=== PATIENT | male | born 1980 | race Caucasian/White ===

== ENCOUNTER 2022-10-18 11:01 | Outpatient (CLI) | payer BC, SELFPAY ==
--- NOTE | 2022-10-24 12:48 | WPDHOLTEREM ---
Holter/Event Monitor Holter/Event Monitor Date of procedure: 10/18/22 Holter/Event Procedure: 48 Hr Holter Monitor Indications: Palpitations Conclusion: 1. 48 hour holter monitor on 10/18/22. 2. Predominant rhythm is sinus rhythm. HR range 49-138 bpm; average HR 85 bpm. 3. There are 36 premature supraventricular complexes and 60 supraventricular bigeminy. No supraventricular tachycardia. 4. There are 24 premature ventricular complexes, 4 ventricular couplets, and 1 ventricular triplet. There are 2 episodes of ventricular tachycardia, fastest at 140 bpm and longest lasting 6 beats. 5. No sinoatrial or atrioventricular blocks. No significant pauses greater than 2 seconds. 6. Patient reports symptoms of fluttering which demonstrate sinus rhythm, HR range 88-110 bpm and 1 ventricular couplet.
== END 2022-10-18 11:02 | disposition home or self-care (01) ==
LOC: ANHCARD 11:02
PROVIDERS: PCP Physician Assistant; Visit Provider Physician Assistant
DX: R00.2 Palpitations (principal)
CPT/HCPCS: 93225; 93226

== ENCOUNTER 2024-06-21 17:37 | Emergency (ER) | payer BC, SELFPAY ==
--- NOTE | ~2024-06-21 | US_ITS ---
EXAMINATION: US venous doppler [facility] DATE: 06/21/2024 19:59 INDICATION: Swelling TECHNIQUE: Grayscale ultrasound images without and with compression and Doppler ultrasound images of the left lower extremity veins were obtained. COMPARISON: None. FINDINGS: The visualized portions of left common femoral vein, profunda (deep) femoral vein, femoral vein, popl iteal vein, peroneal veins, posterior tibial veins, and greater saphenous vein outflow are patent. IMPRESSION: 1. No deep venous thrombosis within the left lower extremity. Reviewed, dictated and finalized at location A. ORATE RESPONSIBILITY OFFICER
[2024-06-21 17:57] VITALS: BP 195/100; PULSE 109; RESP 18; TEMP 36.3; O2SAT 100
--- NOTE | 2024-06-21 20:16 | ED_ITS ---
HPI - Extremity Problem General Chief complaint: Extremity Problem,Nontraumatic Stated complaint: left foot pain/swelling Time Seen by Provider: 06/21/24 19:29 History of Present Illness HPI Narrative: Patient is a 43-year-old male who presents to the emergency department this evening complaining of left lower extremity pain and swelling for the past year. Patient states that he has not seen his doctor in about a year and states that the pain has been mild and intermittent so he decided to wait it out to see if it would go away. Denies any history of heart failure or blood clots/blood clotting disorder. Patient states yesterday he went sliding and noticed today that his left lower leg was more painful so he decided to come and get checked out. Patient wants to rule out a DVT. States that the pain is only present when he stretches his left leg, has been ambulating and has no difficulty putting weight on his left lower extremity. No additional symptoms or concerns at this time. Related Data Home Medications ?Medication ?Instructions ?Recorded ?Confirmed ?Last Taken ?Type multivitamin (Daily Multi-Vitamin 1 tablet PO DAILY 10/04/22 02/13/23 Unknown History tablet) Allergies Allergy/AdvReac Type Severity Reaction Status Date / Time sulfamethoxazole (From Allergy Hives Verified 06/21/24 18:00 Sept) trimethoprim (From ) Allergy Hives Verified 06/21/24 18:00 Review of Systems Review of Systems: All systems are reviewed and are negative unless stated otherwise in the HPI. [facility] Past Medical History Medical History Hypertension Allergies Surgical History Surgical History Benign skin mole removed 1992 Family History Family History Father Hypertension Grandparent Heart disease Cerebrovascular accident Social History Social History Smoking status: Never smoker Alcohol intake: current Substance use: unknown Lack of Transportation: No Lack of Food: Never True Current Housing: I Have Housing Concerned About Future Housing: No Difficulty Paying Gas/Electric Bills: No Difficulty Paying for Meds: No Currently Unemployed: No Education: Bachelor's Degree Difficulty w/ Childcare or Family Care: No Exam Narrative: General: Alert, awake, afebrile, in no acute distress. HEENT: PERRL, no rhinorrhea, no post nasal drip, oropharynx clear. Neck: Trachea midline, no JVD, no lymphadenopathy. Cardiovascular: Regular rate and rhythm, no murmurs, rubs or gallops, no peripheral edema. Respiratory: Clear to auscultation bilaterally, no tachypnea, no wheezing, no rhonchi, no rubs, no respiratory distress. Abdomen: Soft, nontender, nondistended, no rebound, no guarding, no peritoneal signs. Musculoskeletal: No joint swelling or deformity, normal muscle tone, no left lower extremity calf tenderness, no obvious swelling/edema appreciated on the left lower extremity in comparison to the right. Skin: No rashes or petechia, no signs of infection. Psychiatric: Alert and oriented, normal behavior and judgment for situation. Neurological: Alert and oriented to person, place, and time. Follows all commands. No focal deficits, speech is clear and fluent. Course Vital Signs Vital signs: Vital Signs Temperature 97.4 F L 06/21/24 17:57 Pulse Rate 109 H 06/21/24 17:57 Respiratory Rate 18 06/21/24 17:57 Blood Pressure 195/100 H 06/21/24 17:57 Pulse Oximetry 100 06/21/24 17:57 Oxygen Delivery Room Air 06/21/24 17:57 Temperature 97.4 F L 06/21/24 17:57 Pulse Rate 109 H 06/21/24 17:57 Respiratory Rate 18 06/21/24 17:57 Blood Pressure 195/100 H 06/21/24 17:57 Pulse Oximetry 100 06/21/24 17:57 Oxygen Delivery Room Air 06/21/24 17:57 MDM - Extremity (Nontraumatic) MDM Narrative Medical decision making narrative: The patient was evaluated by myself in the emergency department. History is obtained from patient who is an independent historian and physical exam was performed. External medical records were reviewed at this time. Patient's blood pressure was noted to be elevated at 195/100 patient states that he does have a history of high blood pressure and has not been taking his blood pressure medications. Patient admits that he does take lisinopril/hydrochlorothiazide 20/12.5 mg but he ran out of his medications and he was informed that his script will be refilled until he can see his primary care physician. He was administered 20 mg of p.o. lisinopril at this time for his blood pressure. Imaging studies obtained included left lower extremity venous duplex ultrasound which was independently interpreted by me revealing no evidence of DVT, which is pending final radiology interpretation. Differential diagnosis considerations include DVT, peripheral vascular disease, musculoskeletal strain. Comorbidities impacting this visit include none. I have evaluated and discussed social determinants of health with the patient that could potentially impact subsequent diagnosis and treatment plans. On repeat assessment of the patient, reevaluation revealed that the patient is doing well and is in no acute distress. Patient symptoms have remained stable since he arrived to our emergency department. Repeat vital signs were all reviewed and noted to be stable. Differential diagnosis and treatment plan were discussed with the patient at bedside. Patient agrees with discussion and after shared medical decision making agrees with discharge. All questions were answered to the patient's satisfaction. Patient will follow up with his PCP in 3-5 days. Patient was provided with strict return precautions and instructed to return to the emergency department if any new or worsening symptoms develop. The patient was discharged in stable condition. Discharge Plan Discharge Clinical Impression: Hypertension, Left leg pain Patient Disposition: Home, Self-Care Condition: Stable Instructions: Antibiotic Form, Leg Edema (ED), Leg Sprain (ED) Additional Instructions: Please follow-up with your family doctor within the next 3-5 days. Return to the emergency department if any new or worsening symptoms develop. Patient Language: South [place]ese Prescriptions: New lisinopril-hydrochlorothiazide 20-12.5 mg tablet 1 tablet PO DAILY Qty: 30 0RF No Action multivitamin [Daily Multi-Vitamin] Tablet 1 tablet PO DAILY lisinopril-hydrochlorothiazide 20-12.5 mg tablet 1 tablet PO DAILY Qty: 90 0RF Follow-up/Referrals: Milagro,Patrick Nam PA-C [Primary Care Provider] - 3 Days Time of Disposition: 21:19
[2024-06-21 21:27] VITALS: BP 181/102; PULSE 96; RESP 16; O2SAT 100
[2024-06-21] MEDS: lisinopriL 20 MG TABLET PO (21:28)
[2024-06-21 21:30] VITALS: BP 181/102; PULSE 99; RESP 17; O2SAT 100
== END 2024-06-21 21:32 | disposition home or self-care (01) ==
PROVIDERS: Emergency Provider Emergency Medicine; PCP Physician Assistant
DX: M79.662 Pain in left lower leg (principal); I10 Essential (primary) hypertension; T46.4X6A Underdosing of angiotensin-converting-enzyme inhibitors, initial encounter; T50.2X6A Underdosing of carbonic-anhydrase inhibitors, benzothiadiazides and other diuretics, initial encounter; Z91.148 Patient's other noncompliance with medication regimen for other reason
CPT/HCPCS: 93971; 99284; A9270

== ENCOUNTER 2024-06-30 17:13 | Outpatient (CLI) | payer BC, SELFPAY ==
[2024-06-30 17:25] LABS: Hematocrit 51.5 % (42.0-52.0); Hemoglobin 17.2 g/dL (14.0-18.0); Mean Corpuscular HGB Conc 33.4 g/dl (32-36); Mean Corpuscular Hemoglobin 29.5 pg (26-34); Mean Corpuscular Volume 88.2 fl (80-100); Mean Platelet Volume 9.2 fl (7.4-10.4); Platelet Count Result 295 k/mm3 (150-375); Red Blood Count 5.84 M/mm3 (4.6-6.20); Red Cell Distribution Width 11.9 % (11.5-14.5); White Blood Count 10.9 K/mm3 (4.5-10.0)
[2024-06-30 17:36] LABS: Alanine Aminotransferase 84 U/L (6-50); Albumin Level 4.9 g/dL (3.5-5.1); Alkaline Phosphatase 66 U/L (38-126); Anion Gap 10 mmol/L (4-12); Aspartate Amino Transferase 54 U/L (17-59); Bilirubin,Total 1.3 mg/dL (0.2-1.3); Blood Urea Nitrogen 15 mg/dL (9-20); Calcium 9.9 mg/dL (8.4-10.2); Carbon Dioxide 30 mmol/L (22-30); Chloride 95 mmol/L (98-107); Cholesterol 276 mg/dL (0-200); Estimated Glomerular Filt Rate > 60; Glucose 97 mg/dL (65-110); HDL Direct 47 mg/dL; Potassium 4.3 mmol/L (3.4-5.0); Sodium 135 mmol/L (137-145); Triglycerides 255 mg/dL (<150)
[2024-06-30 17:47] LABS: LDL Cholesterol Direct 180 mg/dL
[2024-06-30 18:07] LABS: Prostate Specific Antigen 1.3 ng/mL (< OR = 4.0)
[2024-06-30 18:24] LABS: Vitamin D 25 Hydroxy 24.2 ng/mL
--- OUTSIDE RECORDS SUMMARY | 2024-07-02 03:23 | XMS_ITS | Clinical Summary ---
Author Organization [facility] Address [address] [place] [address]. [place], [place] [address] [place] [address] Care Team Providers Care Fleet Technician Name Role Phone Saad Rodriguez MD Primary Care Provider +1- [phone] Social History Tobacco Use Types Packs/Day Years Used Date Smoking Tobacco: Never Assessed Sex and Gender Information Value Date Recorded Sex Assigned at Not on file Legal Sex Male 7:38 PM CDT Gender Identity Not on file Sexual Orientation Not on file Plan of Treatment Health Maintenance Due Date Last Done Comments Annual Physical 1985 Hepatitis C 2000 DTaP, Tdap and Td Vaccines ( 1 - Tdap) 2001 Hepatitis B Vaccines (1 of 3 - 19+ 3-dose series) 2001 COVID-19 Vaccine (2023-2 5 season) 2024 Influenza Adult (#1) 2024 HPV Vaccines Aged Out No longer eligi ble based on patient's age to complete this topic Meningococcal Vaccine Aged Out No jayna princess eligible based on patient's age to complete this topic Pneumococcal Vaccine: Pediat rics (0 to 5 Years) and At-Risk Patients (6 to 64 Years) Aged Out No longer eligible b ased on patient's age to complete this topic RSV Immunizations Under 20 Months Aged Out No longer eligible based on patient's age to complete this topic Care Teams Fleet Technician Relationship Specialty Start Date End Date Saad Rodriguez MD [address] [place] [id number] PCP - General 12/10/11
--- OUTSIDE RECORDS SUMMARY | 2024-07-02 03:23 | XMS_ITS | Continuity of Care Document ---
Author Organization [facility] Address [address] [facility] [address] [place] [address] Phone Care Team Providers Care Vba Developer Name Role Phone Aleksandr Pelayo DO Unavailable Unavailable Advance Directives Directive Yes / No Effective Date File Name No Information Encounters Encounter Description Practice Location Reason(s) For Visit Diagnoses Date Provider Providers Copied on Encounter [facility], [address], [place], [place], [id number], [phone] [facility] No Information Pierce Medina. [address] [place], [address], [place]. tel: [phone] Family History Family Member Type Diagnosis Age At Onset No Information Payers Payer name Insurance type Covered alliance party ID Authoriza tion(s) No Information Social History Type Description Quantity Date Captured Comments Sex Male Smoking Status No Information Chief Complaint And Reason For Visit No Information Reason For Referral Reason For Referral No Information History Of Present Illness Encounter Date Complaint History Of Prese nt Illness No Information Functional Status Date Functional Assessmen t No Information Instructions Date Instruction Additional Infor mation No Information Assessments Type Assessment Date No Information Patient Care Teams Name Effective Dates (start - stop) Status Members No Information
== END 2024-06-30 17:14 | disposition home or self-care (01) ==
LOC: ANHLAB 17:14
PROVIDERS: PCP Family Medicine; Visit Provider Nurse Practitioner Family
DX: E78.5 Hyperlipidemia, unspecified (principal); Z12.5 Encounter for screening for malignant neoplasm of prostate; I10 Essential (primary) hypertension; E55.9 Vitamin D deficiency, unspecified; R35.1 Nocturia
CPT/HCPCS: 36415; 80053; 80061; 82306; 84153; 84443; 85027; G0103

== ENCOUNTER 2024-08-27 14:57 | Outpatient (CLI) | payer BC, SELFPAY ==
--- OUTSIDE RECORDS SUMMARY | 2024-08-27 15:05 | XMS_ITS | Clinical Summary ---
Author Organization [facility] Address [facility] [place] [address] Care Team Providers Care Keysmith Name Role Phone Saad Rodriguez MD Primary Care Provider +1- [phone] Social History Tobacco Use Types Packs/Day Years [...] patient's age to complete this topic Meningococcal B Vaccine Aged Out No l onger eligible based on patient's age to complete [...] age to complete this topic Care Teams Keysmith Relationship Specialty Start Date End Date Saad Rodriguez MD [address] [place] [address] PCP - General 12/10/11
--- OUTSIDE RECORDS SUMMARY | 2024-08-27 15:05 | XMS_ITS | Continuity of Care Document ---
Author Organization [facility] Address [address] [facility] [address] [place] [address] Phone Care Team Providers Care Business Process Coordinator Name Role Phone Aleksandr Pelayo DO Unavailable Unavailable Advance Directives Directive Yes / No Effective Date File Name No Information Encounters Encounter Description Practice Location Reason(s) For Visit Diagnoses Date Provider Providers Copied on Encounter [facility] [place], [address], [place], [place], [id number], tel:[phone] [facility] No Information Pierce Medina. [address] [place], [address], [place]. tel: [phone] Family History Family Member Type Diagnosis Age At Onset No Information Payers Payer name Insurance type Covered republican ID Authoriza tion(s) No Information Social History [...]
[2024-08-27 15:21] LABS: Alanine Aminotransferase 60 U/L (6-50); Albumin Level 4.7 g/dL (3.5-5.1); Alkaline Phosphatase 63 U/L (38-126); Aspartate Amino Transferase 41 U/L (17-59); Bilirubin,Total 0.9 mg/dL (0.2-1.3)
[2024-08-27 16:05] LABS: Vitamin D 25 Hydroxy 36.5 ng/mL
== END 2024-08-27 14:58 | disposition home or self-care (01) ==
LOC: ANHLAB 14:58
PROVIDERS: PCP Family Medicine; Visit Provider Nurse Practitioner Family
DX: R74.8 Abnormal levels of other serum enzymes (principal)
CPT/HCPCS: 36415; 80076; 82306

== ENCOUNTER 2024-10-08 01:28 | Day surgery (SDC) | payer BC, SELFPAY ==
[2024-10-01 08:20] VITALS: BMI 38.1
--- OUTSIDE RECORDS SUMMARY | 2024-10-08 01:30 | XMS_ITS | Clinical Summary ---
Author Organization [facility] Address [facility] [place] [address] Care Team Providers Care [employer] Name Role Phone Saad Rodriguez MD Primary Care Provider +1- [phone] Social History Tobacco Use Types Packs/Day Years [...] 2001 COVID-19 Vaccine (2023-2 5 season) 2024 HPV Vaccines Aged Out No longer eligi ble based on patient's age to complete this topic Meningococcal B Vaccine Aged Out No l onger eligible based on patient's age to complete this topic Meningococcal Vaccine Aged Out No jayna princess eligible based on patient's age to complete this topic Pneumococcal Vaccine: Pediat rics (0 to 5 Years) and At-Risk Patients (6 to 49 Years) Aged Out No longer eligible b ased on patient's age to complete this topic RSV Immunizations Under 20 Months Aged Out No longer eligible based on patient's age to complete this topic Care Teams [employer] Relationship Specialty Start Date End Date Saad Rodriguez MD [address] [place] [phone] PCP - General 12/10/11
--- OUTSIDE RECORDS SUMMARY | 2024-10-08 01:30 | XMS_ITS | Continuity of Care Document ---
Author Organization [facility] Address [address] [facility] [address] [place] [address] Phone Care Team Providers Care Corn Grower Name Role Phone Aleksandr Pelayo DO Unavailable Unavailable Advance Directives Directive Yes / No Effective Date File Name No Information Encounters Encounter Description Practice Location Reason(s) For Visit Diagnoses Date Provider Providers Copied on Encounter [facility], [address], [place], [place], [id number], [phone] [facility] No Information Pierce Median. [address] [place], [address], [place]. tel: [phone] Family History Family Member Type Diagnosis Age At Onset No Information Payers Payer name Insurance type Covered constitution party ID Authoriza tion(s) No Information Social [...]
[2024-10-08 11:53] VITALS: BP 141/89; PULSE 91; RESP 18; TEMP 36.9; O2SAT 99
[2024-10-08] MEDS: LACTATED RINGERS 1,000 ML 150 ML IV CONT (12:01)
--- NOTE | 2024-10-08 12:47 | P.PNAN_ITS ---
Anes - Initial Pre Proc Eval Procedure: Operation Date: 10/08/24 13:30 Proposed Procedures p Esophagogastroduodenoscopy - Karel Nelson MD Date/Time: 10/08/24 12:47 Surgeon: Karel Nelson MD Pre Op Diagnosis: GERD, Dysphagia Patient Data Age: 44 Gender: M Height: 1.6 m Weight: 94.3 kg Last Vital Signs Temp 98.4 F 10/08/24 11:53 Pulse 91 10/08/24 11:53 Resp 18 10/08/24 11:53 BP 141/89 H 10/08/24 11:53 Pulse Ox 99 10/08/24 11:53 O2 Del Method Room Air 10/08/24 11:53 Allergies Allergy/AdvReac Type Severity Reaction Status Date / Time sulfamethoxazole (From Allergy Hives Verified 10/08/24 11:52 ) trimethoprim (From ) Allergy Hives Verified 10/08/24 11:52 Home Medications ?Medication ?Instructions ?Recorded ?Confirmed ?Type lisinopril 20 1 tablet PO DAILY #90 tabs 06/29/24 10/08/24 Rx mg-hydrochlorothiazide 12.5 mg tablet cholecalciferol (vitamin D3) 100 100 mcg PO DAILY #90 tabs 07/06/24 10/08/24 Rx mcg (4,000 unit) tablet omeprazole 20 mg capsule,delayed 20 mg PO DAILY #30 caps 07/09/24 10/08/24 Rx release Patient hx anesthesia problems: none Family hx anesthesia problems: none Results Review: All pre-operative results and documents have been reviewed as part of the pre- operative evaluation. [facility] Past Medical History Medical History Hypertension Allergies Surgical History Surgical History Benign skin mole removed 1992 Family History Family History Father Hypertension Grandparent Heart disease Cerebrovascular accident Social History Social History Smoking status: Never smoker Alcohol intake: current Substance use: unknown Substance use type: does not use Lack of Transportation: No Lack of Food: Never True Current Housing: I Have Housing Concerned About Future Housing: No Difficulty Paying Gas/Electric Bills: No Difficulty Paying for Meds: No Currently Unemployed: No Education: Bachelor's Degree Difficulty w/ Childcare or Family Care: No Living arrangements: alone Spiritual care concerns: No Anes - Eval Final PreProcedure Day of Procedure 10/08/24 12:47 Patient weight: obese Lungs: normal air movement Airway: Mallampati scale class II and special considerations Neurological: alert and oriented Last oral intake: >/= 8 hours ASA classification: III Emergent: no Anesthetic plan: proceed Anesthesia type and monitoring: general GIVS and standard monitoring Results Review: All pre-operative results and documents have been reviewed as part of the pre- operative evaluation.HTN GERD, dysphagia. Informed Consent: The patient's anesthetic plan and its attendant risks and benefits were discussed with the patient/family/POA. Questions were solicited and answers provided to the satisfaction of the patient/family/POA.
--- NOTE | 2024-10-08 15:29 | PM.IMHP ---
H&P: HPI History of Present Illness Date/Time: 10/08/24 15:29 Chief Complaint: Dysphagia Narrative: this patient has several month with dysphagia to solid foods. He endorses heartburn as well. He is referred for EGD. Review of Systems Review of Systems: All systems reviewed & are unremarkable except as noted in HPI and below PMFSH Past Medical History Medical History Hypertension Allergies Surgical History Surgical History Benign skin mole removed 1992 Family History Family History Father Hypertension Grandparent Heart disease Cerebrovascular accident Social History Social History Smoking status: Never smoker Alcohol intake: current Substance use: unknown Substance use type: does not use Lack of Transportation: No Lack of Food: Never True Current Housing: I Have Housing Concerned About Future Housing: No Difficulty Paying Gas/Electric Bills: No Difficulty Paying for Meds: No Currently Unemployed: No Education: Bachelor's Degree Difficulty w/ Childcare or Family Care: No Living arrangements: alone Spiritual care concerns: No Meds Home Medications and Allergies Home Medications ?Medication ?Instructions ?Recorded ?Confirmed ?Type lisinopril 20 1 tablet PO DAILY #90 tabs 06/29/24 10/08/24 Rx mg-hydrochlorothiazide 12.5 mg tablet cholecalciferol (vitamin D3) 100 100 mcg PO DAILY #90 tabs 07/06/24 10/08/24 Rx mcg (4,000 unit) tablet omeprazole 20 mg capsule,delayed 20 mg PO DAILY #30 caps 07/09/24 10/08/24 Rx release Allergies Allergy/AdvReac Type Severity Reaction Status Date / Time sulfamethoxazole (From Allergy Hives Verified 10/08/24 11:52 ) trimethoprim (From ) Allergy Hives Verified 10/08/24 11:52 Vital Signs Vital Signs - 24 hr 10/08/24 11:53 Temperature 98.4 F Pulse Rate 91 Respiratory Rate 18 Blood Pressure 141/89 H Pulse Oximetry 99 Oxygen Delivery Room Air Exam Const: General: cooperative and healthy appearing Resp: Effort & Inspection: normal respiratory effort and able to speak in complete sentences Auscultation: clear to auscultation bilaterally Cardio: Rate: regular rate Rhythm: regular rhythm GI: Inspection: normal to inspection GI Palp: No No hepatosplenomegaly present Auscultation: normal bowel sounds Rectal Exam: deferred Skin: General skin exam: normal color Psych: Appearance: grossly normal Mental Status: mental status grossly normal Assessment and Plan Assessment and plan (1) Dysphagia: Code(s): R13.10 - Dysphagia, unspecified Status: Acute Assessment and Plan: The patient is deemed a good candidate for the procedure. Consent signed. Will proceed.
[2024-10-08 15:37] VITALS: BP 126/80; PULSE 90; RESP 22; O2SAT 99
[2024-10-08 15:47] VITALS: BP 135/87; PULSE 81; RESP 21; O2SAT 98
[2024-10-08 15:57] VITALS: BP 146/93; PULSE 77; RESP 21; O2SAT 99
== END 2024-10-08 16:15 | disposition home or self-care (01) ==
PROVIDERS: PCP Family Medicine; Referring Provider Nurse Practitioner Family; Visit Provider Internal Medicine Gastroenterology
PROC: 0DJ08ZZ Inspection of Upper Intestinal Tract, Via Natural or Artificial Opening Endoscopic (ICD-10-PCS; CPT 43239; principal; 2024-10-08 13:30)
DX: K21.00 Gastro-esophageal reflux disease with esophagitis, without bleeding (principal); K44.9 Diaphragmatic hernia without obstruction or gangrene; I10 Essential (primary) hypertension; E66.9 Obesity, unspecified; Z68.36 Body mass index [BMI] 36.0-36.9, adult; Z98.890 Other specified postprocedural states; Z82.49 Family history of ischemic heart disease and other diseases of the circulatory system
CPT/HCPCS: 43239; 88305; J2003; J2704; J7120

== ENCOUNTER 2025-01-14 10:00 | Outpatient (CLI) | payer BC, SELFPAY ==
--- OUTSIDE RECORDS SUMMARY | 2025-01-14 10:03 | XMS_ITS | Continuity of Care Document ---
Author Organization [facility] Address [address] [facility] [address] [place] [address] Phone Care Team Providers Care Cash Management Associate Name Role Phone Aleksandr Pelayo DO Unavailable Unavailable Advance Directives Directive Yes / No Effective Date File Name No Information Encounters Encounter Description Practice Location Reason(s) For Visit Diagnoses Date Provider Providers Copied on Encounter [facility], [address], [place], [place], [id number], [phone] [facility] No Information Pierce Medina. [address] [place], [address], [place]. tel: [phone] Family History Family Member Type Diagnosis Age At Onset No Information Payers Payer name Insurance type Covered green party ID Authoriza tion(s) No Information Social [...]
--- OUTSIDE RECORDS SUMMARY | 2025-01-14 10:03 | XMS_ITS | Clinical Summary ---
Author Organization [facility] Address [facility] [place] [address] Care Team Providers Care Glove Parts Cutter Name Role Phone Saad Rodriguez MD Primary Care Provider +1- [phone] Social History Tobacco Use Types Packs/Day Years [...] of 3 - 19+ 3-dose series) 2001 HPV Vaccines (1 - 3-dose SCD M series) 2009 COVID-19 Vaccine (2023-2 5 season) 2024 Meningococcal B Vaccine Aged Out No l [...] age to complete this topic Care Teams Glove Parts Cutter Relationship Specialty Start Date End Date Saad Rodriguez MD [address] [place] [id number] PCP - General 12/10/11
[2025-01-14 10:50] LABS: Alanine Aminotransferase 52 U/L (6-50); Albumin Level 4.6 g/dL (3.5-5.1); Alkaline Phosphatase 67 U/L (38-126); Aspartate Amino Transferase 39 U/L (17-59); Bilirubin,Total 0.7 mg/dL (0.2-1.3); Total Protein 8.0 g/dL (6.3-8.2)
== END 2025-01-14 10:01 | disposition home or self-care (01) ==
LOC: ANHLAB 10:02
PROVIDERS: PCP Family Medicine; Visit Provider Nurse Practitioner Family
DX: R74.8 Abnormal levels of other serum enzymes (principal); E55.9 Vitamin D deficiency, unspecified
CPT/HCPCS: 36415; 80076; 82306